=== PATIENT | female | born 1960 | race Caucasian/White ===

== ENCOUNTER 2017-12-18 15:21 | Outpatient (CLI) | payer BC ==
--- NOTE | 2017-12-18 16:21 | MRI ---
MRI LUMBAR SPINE WITHOUT CONTRAST: HISTORY: Lumbar disk displacement. Back pain. COMPARISON: None. TECHNIQUE: MRI lumbar spine is performed without intravenous Gadolinium administration. Multisequential, multip lanar imaging is performed. FINDINGS: Appropriate T1 marrow signal intensity of the lumbar vertebrae. Vertebral body height is maintained. No fracture. No significant STIR hyperintensity to suggest edema or ligamentous injury. Conus medullaris terminates at the inferior aspect of L1. Left parapelvic cysts are noted. T12-L1: Adequate disk hydration. No significant central canal stenosis or foraminal narrowing. L1-L2: Adequate disk hydration. No significant central canal stenosis or foraminal narrowing. L2-L3: Mild loss of disk space height. No significant posterior disk abnormality. No significant c entral canal stenosis. Foramen are patent bilaterally. L3-L4: Adequate disk hydration. No significant posterior disk abnormality. No significant central canal stenosis. Foramina are patent bilaterally. L4-L5: Adequate disk hydration. Generalized disk bulge, ligamentum flavum thickening, and facet hyp ertrophy are present. There is mild stenosis of the thecal sac. There is evidence of disk material in the left subarticular zone likely representing inferior disk extrusion, measuring 1 cm craniocauda l x 0.9 cm mediolateral x 0.7 cm anterior posterior. Disk material abuts the obscures the traversing left L5 nerve root. Mild bilateral foraminal narrowing. L5-S1: Desiccation with severe loss of disk space height. No significant central canal stenosis. F oramina are patent bilaterally. IMPRESSION: Degenerative disk disease at L4-L5. There is narrowing of the left subarticular zone with complete o bscuration of the traversing left L5 nerve root. POS: FRANCISCA
== END 2017-12-18 15:22 | disposition home or self-care (01) ==
LOC: TBSIIMAG 15:21
PROVIDERS: ATTEND Chiropractor
DX: M54.5 Low back pain (principal); M51.36 Other intervertebral disc degeneration, lumbar region; M48.061 Spinal stenosis, lumbar region without neurogenic claudication
CPT/HCPCS: 72148

== ENCOUNTER 2019-03-15 12:10 | Outpatient (CLI) | payer BC ==
--- NOTE | 2019-03-15 12:55 | MMO ---
Bilateral MAMMO Bilat Screen [facility]DI+PRACHI. CLINICAL HISTORY: Patient is 58 years old and is seen for screening. The patient has no family history of breast cancer. The patient has no personal history of cancer. VIEWS: The views performed were: bilateral craniocaudal with tomosynthesis and bilateral mediolateral oblique with tomosynthesis. FILMS COMPARED: The present examination has been compared to [place] [facility] [place] and at [facility] on 11/28/2011 and 12/29/2011. MAMMOGRAM FINDINGS: The breasts are heterogeneously dense, which could obscure a lesion on mammography. There is an asymmetry seen in the CC view only seen in the middle inner region of the left breast. In the right breast, there are no suspicious masses, calcifications or areas of architectural distortion. IMPRESSION: ASYMMETRY IN THE LEFT BREAST REQUIRES ADDITIONAL EVALUATION. RECOMMEND DIAGNOSTIC MAMMOGRAM. ULTRASOUND MAY ALSO PROVE USEFUL AT RECALL. THE RESULTS OF THIS EXAM WERE SENT TO THE PATIENT. ACR BI-RADS Category 0 - Incomplete: Need additional imaging evaluation. [facility] will notify the patient of the need for additional imaging services. MAMMOGRAPHY NOTE: 1. A negative mammogram report should not delay a biopsy if a dominant of clinically suspicious mass is present. 2. Approximately 10% to 15% of breast cancers are not detected by mammography. 3. Adenosis and dense breasts may obscure an underlying neoplasm. Reported by: LIZZY GODWIN MD Electonically Signed: [id number]
== END 2019-03-15 12:11 | disposition home or self-care (01) ==
LOC: BICMAMMO 12:10
PROVIDERS: ATTEND Nurse Practitioner
DX: Z12.31 Encounter for screening mammogram for malignant neoplasm of breast (principal); N64.89 Other specified disorders of breast
CPT/HCPCS: 77063; 77067

== ENCOUNTER 2019-04-05 14:42 | Outpatient (CLI) | payer BC ==
--- NOTE | 2019-04-05 15:05 | MMO ---
Left Breast MAMMO Unilat Diag DDI LT+PRACHI. CLINICAL HISTORY: Patient is 59 years old and is seen for additional evaluation requested at current screening. The patient has no family history of breast cancer. The patient has no personal history of cancer. VIEWS: The views performed were: left craniocaudal spot compression with tomosynthesis and left mediolateral with tomosynthesis. FILMS COMPARED: The present examination has been compared to prior imaging studies performed at [facility] [place] on 11/13/2013, at [facility] on 03/15/2019, and at [facility] on 11/28/2011 and 12/29/2011. MAMMOGRAM FINDINGS: The breast is heterogeneously dense, which could obscure a lesion on mammography. There is an asymmetry seen in the left breast. Tomosynthesis compression images show the abnormality to represent superimpostion of normal breast parenchyma. There are no suspicious masses, suspicious calcifications, or new areas of architectural distortion. IMPRESSION: THERE IS NO MAMMOGRAPHIC EVIDENCE OF MALIGNANCY. A ROUTINE FOLLOW-UP MAMMOGRAM IN 1 YEAR IS RECOMMENDED. THE RESULTS OF THIS EXAM WERE SENT TO THE PATIENT. ACR BI-RADS Category 2 - Benign finding MAMMOGRAPHY NOTE: 1. A negative mammogram report should not delay a biopsy if a dominant of clinically suspicious mass is present. 2. Approximately 10% to 15% of breast cancers are not detected by mammography. 3. Adenosis and dense breasts may obscure an underlying neoplasm. Reported by: MADDY BRAN MD Electonically Signed: [id number]
== END 2019-04-05 14:43 | disposition home or self-care (01) ==
LOC: BICMAMMO 14:42
PROVIDERS: ATTEND Nurse Practitioner
DX: R92.2 Inconclusive mammogram (principal)
CPT/HCPCS: G0279